=== PATIENT | female | born 1990 | race Caucasian/White ===

== ENCOUNTER 2020-07-23 03:58 | Emergency (ER) | payer OTHER ==
[~2020-07-23] VITALS: Ht 165.1 cm; Wt 108.1 kg
[2020-07-23 04:29] LABS: BASOPHILS # (AUTO) 0.03 x10^3/uL (0-0.1); BASOPHILS % (AUTO) 0 % (0-1); EOSINOPHILS # (AUTO) 0.06 x10^3/uL (0-0.4); EOSINOPHILS % (AUTO) 1 % (1-7); LYMPHOCYTES # (AUTO) 2.18 x10^3/uL (1-3.4); LYMPHOCYTES % (AUTO) 18 % (22-44); MD NO; MEAN CORPUSCULAR HEMOGLOBIN 32.1 pg (27.0-34.8); MEAN CORPUSCULAR HGB CONC 33.9 g/dL (32.4-35.8); MEAN PLATELET VOLUME 9.3 fL (7.4-10.4); MONOCYTES # (AUTO) 0.38 x10^3/uL (0.2-0.8); MONOCYTES % (AUTO) 3 % (2-9); NEUTROPHILS # (AUTO) 9.21 x10^3/uL (1.8-6.8); NEUTROPHILS % (AUTO) 78 % (42-75); PLATELET COUNT 304 x10^3/uL (130-400)
[2020-07-23 04:40] LABS: ALANINE AMINOTRANSFERASE 32 U/L (12-78); ALBUMIN 4.2 g/dL (3.4-5.0); ANION GAP 5 mmol/L (5-15); CALCIUM 9.6 mg/dL (8.5-10.1); CHLORIDE 104 mmol/L (98-107); CREATININE 0.94 mg/dL (0.55-1.02)
[2020-07-23 04:44] LABS: ALKALINE PHOSPHATASE 74 U/L (45-117); BILIRUBIN,TOTAL 0.4 mg/dL (0.2-1.0)
[2020-07-23] MEDS ORDERED: MORPHINE SULFATE 4 MG/ML, 1ML ONE (04:48)
[2020-07-23] MEDS ORDERED: ONDANSETRON 2MG/ML, 2ML ONE (04:48)
[2020-07-23] MEDS ORDERED: ONDANSETRON 2MG/ML, 2ML IVPush ONE (05:00)
[2020-07-23] MEDS ORDERED: SODIUM CHLORIDE FLUSH 10ML SYR IVF ONE (05:00)
[2020-07-23] MEDS ORDERED: MORPHINE SULFATE 4 MG/ML, 1ML IVPush PRN (05:00)
[2020-07-23 05:06] LABS: MICROSCOPIC NOT IND
[2020-07-23 06:25] VITALS: BP 122/59
--- NOTE | 2020-07-23 06:53 | NUR ---
REPORT FROM STEVE RN, PT RESTING IN [facility], PT UP FOR RECHECK BY
[2020-07-23] MEDS ORDERED: MAGNESIUM CITRATE 300ML ORAL SOL ONE (06:55)
[2020-07-23] MEDS ORDERED: MAGNESIUM CITRATE 300ML ORAL SOL PO ONE (07:00)
== END 2020-07-23 07:25 | disposition home or self-care (01) ==
LOC: ED 04:49
DX: K59.00 Constipation, unspecified (principal); R10.11 Right upper quadrant pain; R10.13 Epigastric pain
CPT/HCPCS: 36415; 74021; 76700; 80053; 81003; 83690; 84703; 85025; 96374; 96375; 99285; J2270; J2405